=== PATIENT | female | born 1985 | race Two or more races ===

== ENCOUNTER 2024-04-12 05:59 | Day surgery (SDC) | payer OTHER ==
[2024-04-07 10:37] LABS: HEMATOCRIT 38.1 % (36.0-45.00); HEMOGLOBIN 13.5 g/dL (12.0-15.00); MEAN CORPUSCULAR HEMOGLOBIN 31.5 pg (27.00-32.0); MEAN CORPUSCULAR HGB CONC 35.4 g/dl (32.0-36.0); PLATELET COUNT 281 K/uL (150-450); RED BLOOD COUNT 4.28 M/uL (4.00-6.00); RED CELL DISTRIBUTION WIDTH 12.3 % (11.5-14.5)
[2024-04-07 10:59] LABS: URINE APPEARANCE Clear; URINE BILIRRUBIN Negative (NEGATIVE); URINE BLOOD Negative; URINE COLOR Yellow; URINE GLUCOSE Negative (NEGATIVE); URINE LEUKOCYTE Negative; URINE NITRATE Negative; URINE PROTEIN Negative (NEGATIVE)
[2024-04-07 11:05] LABS: INR 0.98; PARTIAL THROMBOPLASTIN TIME 27.6 SECONDS (22.0-34.0); PROTHROMBIN TIME 10.3 SECONDS (9.0-11.5); URINE BACTERIA 1345.6 uL (0.0-1933); URINE EPITHELIAL CELLS 19.4 uL (0.0-38.8); URINE RBC 10.2 uL (0.0-20.8)
[2024-04-07 11:10] LABS: URINE WBC 1.6 uL (0.0-23.2)
[2024-04-07 11:14] LABS: ALBUMIN 3.6 gm/dL (3.4-5.0); BILIRUBIN TOTAL 0.45 mg/dL (0.3-1.2); CALCIUM 9.2 mg/dL (8.5-10.1); CREATININE SERUM 0.7 mg/dL (0.55-1.02); GFR 92.21; GLOBULINA 3.2 G/DL (2.4-3.5); POTASSIUM 4.53 mEq/L (3.5-5.1); TOTAL PROTEIN 6.8 gm/dL (6.4-8.2)
[~2024-04-12] VITALS: Ht 167.6 cm; Wt 77.1 kg
[~2024-04-12 05:59] MED LIST: ADVAIR HFA 115/12 GM IH; ZYRTEC10 M3 PO
[2024-04-12] MEDS ORDERED: METRONIDAZOLE/SODIUM CHLORIDE 500 MG/100 ML PIGGYBACK IV ONE ×2 (08:11→10:00)
[2024-04-12] MEDS ORDERED: CEFTRIAXONE SODIUM 2,000 MG VIAL ONE (08:11)
[2024-04-12] MEDS ORDERED: DIBUCAINE 30 GM TUBE ONE (09:07)
[2024-04-12] MEDS ORDERED: POVIDONE-IODINE 118 ML BOTT TOP ONE ×2 (09:07→10:00)
[2024-04-12] MEDS ORDERED: HEMOSTATIC MATRIX 1 KIT KIT TOP ONE ×2 (09:08→10:00)
[2024-04-12] MEDS ORDERED: BUPIVACAINE LIPOSOME/PF 266 MG/20 ML VIAL IJ ONE ×2 (09:08→10:00)
[2024-04-12] MEDS ORDERED: DIBUCAINE 30 GM TUBE RECTAL ONE (10:00)
[2024-04-12] MEDS ORDERED: CEFTRIAXONE SODIUM 2,000 MG VIAL IV ONE (10:00)
[2024-04-12] MEDS ORDERED: NEURONTIN300 MG PO (10:49)
[2024-04-12] MEDS ORDERED: CELECOXIB200 MG PO (10:49)
[2024-04-12] MEDS ORDERED: PERCOCET 5-3251 EACH PO (10:49)
== END 2024-04-12 15:15 | disposition home or self-care (01) ==
LOC: CIR.AMB 05:59
PROVIDERS: ATTEND Surgery
DX: K64.2 Third degree hemorrhoids (principal); K64.4 Residual hemorrhoidal skin tags; K57.32 Diverticulitis of large intestine without perforation or abscess without bleeding; K62.5 Hemorrhage of anus and rectum; R10.32 Left lower quadrant pain; J45.909 Unspecified asthma, uncomplicated; Z91.013 Allergy to seafood

== ENCOUNTER 2024-06-28 07:40 | Day surgery (SDC) | payer OTHER ==
[~2024-06-28] VITALS: Ht 167.6 cm; Wt 76.7 kg
[~2024-06-28 07:40] MED LIST changes: +CELECOXIB200 MG PO; +NEURONTIN300 MG PO; +PERCOCET 5-3251 EACH PO
--- NOTE | 2024-06-28 07:55 | NUR ---
PACIENTE ALERTA Y ORIENTADA X3 VIENE A NATAN DE EMERGENCIAS A CAUSA DE MIRELA FISTULA ANAL Y ABCESO. PACIENTE VIENE CON REFERIDO MEDICO DE DRA. GONZALO CARRASQUILLO SE MIDEN S/V Y SE UBICA.
[2024-06-28] MEDS ORDERED: RINGERS SOLUTION,LACTATED 1,000 ML IV SCH (08:00)
[2024-06-28 08:34] LABS: URINE BILIRRUBIN Negative (NEGATIVE); URINE BLOOD Negative; URINE COLOR Dark Yellow; URINE GLUCOSE Negative (NEGATIVE); URINE KETONE 15 (NEGATIVE); URINE LEUKOCYTE Negative; URINE NITRATE Negative; URINE PROTEIN Negative (NEGATIVE)
[2024-06-28 08:35] LABS: URINE BACTERIA 23.9 uL (0.0-1933); URINE EPITHELIAL CELLS 20.5 uL (0.0-38.8); URINE RBC 9.3 uL (0.0-20.8); URINE WBC 2.4 uL (0.0-23.2)
[2024-06-28 08:39] LABS: HEMATOCRIT 41.8 % (36.0-45.00); HEMOGLOBIN 14.6 g/dL (12.0-15.00); MEAN CORPUSCULAR HGB CONC 34.9 g/dl (32.0-36.0); PLATELET COUNT 314 K/uL (150-450); RED CELL DISTRIBUTION WIDTH 12.8 % (11.5-14.5)
[2024-06-28 08:57] LABS: URINE APPEARANCE CLEAR; URINE CAST 0.45 uL (0.0-1.40)
[2024-06-28 09:10] LABS: BILIRUBIN TOTAL 0.91 mg/dL (0.3-1.2); CALCIUM 9.5 mg/dL (8.5-10.1); CREATININE SERUM 0.65 mg/dL (0.55-1.02); GFR 100.45; GLOBULINA 3.9 G/DL (2.4-3.5); POTASSIUM 3.88 mEq/L (3.5-5.1); TOTAL PROTEIN 7.9 gm/dL (6.4-8.2)
[2024-06-28 09:12] LABS: INR 1.05; PARTIAL THROMBOPLASTIN TIME 29.1 SECONDS (22.0-34.0); PROTHROMBIN TIME 11.4 SECONDS (9.0-11.5)
[2024-06-28 09:54] LABS: ALBUMIN 4.1 gm/dL (3.4-5.0); CALCIUM 9.6 mg/dL (8.5-10.1); CREATININE SERUM 0.62 mg/dL (0.55-1.02); GFR 106.08; MAGNESIUM 2.1 mg/dL (1.8-2.4); POTASSIUM 4.32 mEq/L (3.5-5.1)
[2024-06-28] MEDS ORDERED: LIDOCAINE HCL 1%/EPINEPHRINE 20ML VIAL IJ ONE (10:35)
[2024-06-28] MEDS ORDERED: BUPIVACAINE HCL 30 ML VIAL IJ ONE (10:35)
[2024-06-28] MEDS ORDERED: PIPERACILLIN/TAZOBACTAM SODIUM 3.375 GM VIAL IV ONE ×2 (11:15)
[2024-06-28] MEDS ORDERED: HEMOSTATIC MATRIX 1 KIT KIT TOP ONE (11:15)
[2024-06-28] MEDS ORDERED: POVIDONE-IODINE 118 ML BOTT TOP ONE (11:15)
[2024-06-28] MEDS ORDERED: DIBUCAINE 30 GM TUBE RECTAL ONE (11:15)
[2024-06-28] MEDS ORDERED: CELECOXIB200 MG PO (11:30)
[2024-06-28] MEDS ORDERED: PERCOCET 5-3251 EACH PO (11:30)
[2024-06-28] MEDS ORDERED: INTESTINEX680 M1 PO (11:31)
[2024-06-28 17:24] VITALS: BP 93/51; O2SAT 100
== END 2024-06-28 16:35 | disposition home or self-care (01) ==
LOC: CIR.AMB 07:40 → ER 07:40 → CIR.AMB 07:40 → SEC-K 08:17 → ER 08:17 → O/R 10:13 → SEC-K 10:13 → EDSTATUS 11:45 → CIR.AMB 16:35 → O/R 16:35
PROVIDERS: Surgery; ATTEND Emergency Medicine
DX: K60.30 Anal fistula, unspecified (principal); K62.5 Hemorrhage of anus and rectum; Z20.822 Contact with and (suspected) exposure to COVID-19